=== PATIENT | male | born 2000 | race Hispanic/Latino ===

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

== ENCOUNTER 2023-05-18 09:01 | Emergency (ER) | payer BC, OTHER | END 2023-05-18 09:45 | disposition home or self-care (01) | LOC: ERS 09:01 | DX: B34.9 Viral infection, unspecified (principal); Z20.822 Contact with and (suspected) exposure to COVID-19 | CPT/HCPCS: 87635; 99283 ==

== ENCOUNTER 2023-08-06 12:31 | Emergency (ER) | payer OTHER, SELFPAY ==
[2023-08-06 13:31] LABS: SARS-CoV-2 NAA Rapid Test Not Detected (NotDetected)
[2023-08-06] MEDS ORDERED: Acetaminophen 500 MG TAB ONE (14:03)
[2023-08-06] MEDS ORDERED: Ketorolac Tromethamine 30 MG/ML VIAL ONE ×2 (14:03→14:04)
== END 2023-08-06 15:05 | disposition home or self-care (01) ==
LOC: ERS 12:31
DX: J10.2 Influenza due to other identified influenza virus with gastrointestinal manifestations (principal); Z20.822 Contact with and (suspected) exposure to COVID-19
CPT/HCPCS: 87081; 87430; 87804; 96374; J1885; U0002

== ENCOUNTER 2023-09-30 08:47 | Emergency (ER) | payer OTHER, SELFPAY ==
[2023-09-30] MEDS ORDERED: Ibuprofen 200 MG TAB ONE (09:22)
== END 2023-09-30 09:41 | disposition home or self-care (01) ==
LOC: ERS 08:47
DX: S13.4XXA Sprain of ligaments of cervical spine, initial encounter (principal); M54.50 Low back pain, unspecified; V49.9XXA Car occupant (driver) (passenger) injured in unspecified traffic accident, initial encounter; Y92.219 Unspecified school as the place of occurrence of the external cause
CPT/HCPCS: 99283

== ENCOUNTER 2024-02-18 15:52 | Emergency (ER) | payer SELFPAY | END 2024-02-18 16:43 | disposition home or self-care (01) | LOC: ERS 15:52 | DX: S93.402A Sprain of unspecified ligament of left ankle, initial encounter (principal); X50.0XXA Overexertion from strenuous movement or load, initial encounter ==

== ENCOUNTER 2024-06-27 16:40 | Emergency (ER) | payer OTHER, SELFPAY ==
[2024-06-27 17:38] LABS: Bacteria/HPF None Seen HPF (None Seen); Bilirubin Negative (Negative); Blood, Urine Negative (Negative); CAUTI Indications for Culture Dysuria,urgency,freq; Clarity Clear (Clear); Glucose, Urine (Dipstick) Normal (Negative); Ketone, Urine Negative (Negative); Leukocyte Negative Leu/uL (Negative); Nitrite Negative (Negative); Protein, Urine (Dipstick) Negative (Neg-Trace); RBC/HPF 0-3 HPF (0-3); Specific Gravity, Urine 1.024 (1.002-1.036); Squamous Epithelial None Seen HPF (0-3); Urobilinogen Normal mg/dL (Less than 2); WBC/HPF None Seen HPF (0-3); pH, Urine 6.5 (5.0-9.0)
[2024-06-27 17:40] LABS: #Basophils 0.04 10x3/uL (0.0-0.2); %Basophils 0.8 % (0.0-1.0); %Eosinophils 1.9 % (0.0-10.0); %Lymphocytes 43.4 % (21.0-51.0); %Monocytes 7.4 % (0.0-10.0); %Neutrophils 46.3 % (42.0-75.0); Hematocrit 50.5 % (42.0-52.0); Hemoglobin 16.7 g/dL (14.0-18.0); Mean Corpuscular HGB CONC 33.1 g/dL (32.0-36.0); Mean Corpuscular Hemoglobin 27.4 pg (27.0-31.0); Mean Corpuscular Volume 82.8 fL (78.0-98.0); Mean Platelet Volume 10.3 fL (7.4-10.4); Platelet Count 244 10x3/uL (130-400); RBC Distribution Width 13.5 % (11.5-14.5)
[2024-06-27 17:42] LABS: Urine Culture Reflex No No
[2024-06-27 18:01] LABS: ALT (SGPT) 15 U/L (8-55); AST (SGOT) 15 U/L (5-34); Albumin 4.8 g/dL (3.5-5.0); Alkaline Phosphatase 61 U/L (40-110); Anion Gap 12 mmol/L (10-20); BUN (Urea Nitrogen) 15 mg/dL (8.9-20.6); Bilirubin, Total 0.4 mg/dL (0.2-1.2); Calc. Creatinine Clearance 0 mL/min (70-130); Calcium 10.7 mg/dL (7.8-10.44); Carbon Dioxide 29 mmol/L (22-29); Chloride 104 mmol/L (98-107); Estimated GFR 113; Globulin 3.4 g/dL (2.4-3.5); Glucose 83 mg/dL (70-105); Lipase 29 U/L (8-78); Potassium 4.1 mmol/L (3.5-5.1); Protein, Total 8.2 g/dL (6.0-8.3); Sodium 141 mmol/L (136-145)
== END 2024-06-27 18:27 | disposition home or self-care (01) ==
LOC: ERS 16:40
DX: K59.00 Constipation, unspecified (principal); Z55.6 Problems related to health literacy
CPT/HCPCS: 74176; 80053; 81001; 83690; 85025